=== PATIENT | male | born 1955 ===

== ENCOUNTER 2023-09-20 10:55 | Day surgery (SDC) | payer MEDICARE, OTHER ==
[2023-09-12 09:04] VITALS: BMI 39.3
[2023-09-20] MEDS ORDERED: PROPOFOL 40 ML ONE ×2 (12:18→12:22)
== END 2023-09-20 13:08 | disposition home or self-care (01) ==
LOC: CSHSDC 10:55
PROVIDERS: ATTEND Surgery
PROC: 0DB68ZX Excision of Stomach, Via Natural or Artificial Opening Endoscopic, Diagnostic (ICD-10-PCS; principal; 2023-09-20)
DX: K29.50 Unspecified chronic gastritis without bleeding (principal); K21.9 Gastro-esophageal reflux disease without esophagitis; K44.9 Diaphragmatic hernia without obstruction or gangrene; K31.A0 Gastric intestinal metaplasia, unspecified; E66.01 Morbid (severe) obesity due to excess calories; E11.9 Type 2 diabetes mellitus without complications; K57.32 Diverticulitis of large intestine without perforation or abscess without bleeding; E78.2 Mixed hyperlipidemia; I10 Essential (primary) hypertension; I87.2 Venous insufficiency (chronic) (peripheral); G47.33 Obstructive sleep apnea (adult) (pediatric); Z68.41 Body mass index [BMI] 40.0-44.9, adult; Z79.899 Other long term (current) drug therapy; Z98.84 Bariatric surgery status
CPT/HCPCS: 88305; 88342; J2704